=== PATIENT | female | born 1975 | race Two or more races ===

== ENCOUNTER 2024-04-16 07:36 | Inpatient (IN) | payer MEDICAID, SELFPAY ==
[2024-04-12 08:30] VITALS: BMI 39.2
--- NOTE | 2024-04-12 08:40 | EKG_ITS ---
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
[2024-04-12 09:42] LABS: Basophils % (Auto) 1 % (0-2.5); Eosinophils # (Auto) 0.1 Thou/mm3 (0.0-0.5); Eosinophils % (Auto) 2 % (0-10); Hematocrit 40.4 % (36.0-46.0); Immature Granulocytes % (Auto) 0 % (0-0); Immature Granulocytes Auto 0.01 Thou/mm3 (0.00-0.00); Lymphocytes # (Auto) 1.7 Thou/mm3 (1.0-4.8); Lymphocytes % (Auto) 27 % (10-50); Mean Corpuscular HGB Conc 34.7 g/dl (31.0-37.0); Mean Corpuscular Hemoglobin 30.3 pg (25.0-35.0); Mean Corpuscular Volume 87 fL (80-100); Monocytes # (Auto) 0.4 Thou/mm3 (0.0-0.8); Monocytes % (Auto) 6 % (0-12); Neutrophils % (Auto) 65 % (37-80); Nucleated Red Blood Cell % 0 /100 WBC (0); Platelet Count 205 Thou/mm3 (140-440); RDW Standard Deviation 38.2 fL (36.4-46.3); Red Blood Count 4.62 Miln/mm3 (4.00-5.20); White Blood Count 6.1 Thou/mm3 (3.6-11.0)
[2024-04-12 09:57] LABS: Partial Thromboplastin Time 27.1 Seconds (22.0-36.0)
[2024-04-12 09:59] LABS: Alanine Aminotransferase 12 U/L (10-49); Albumin, Serum 4.4 gm/dL (3.5-5.0); Albumin/Globulin Ratio 1.6 (1.2-2.2); Alkaline Phosphatase 66 U/L (46-116); Anion Gap 7 (7-16); Aspartate Amino Transferase 12 U/L (0-34); BUN/Creatinine Ratio 16 Ratio (12-20); Beta HCG,Quantitative < 1 mIU/mL (<5.0); Bilirubin,Total 0.6 mg/dL (0.3-1.2); Blood Urea Nitrogen 11 mg/dL (9-23); Calcium 9.3 mg/dL (8.3-10.6); Calcium (Corrected) 9.3 mg/dL (8.5-10.1); Carbon Dioxide 25.6 mMol/L (20.0-31.0); Chloride 107 mMol/L (98-107); Creatinine (Component) 0.7 mg/dL (0.6-1.3); Estimated Creatinine Clearance 100.8 mL/min (>60); Globulin 2.7 gm/dL (2.3-3.5); Glucose 125 mg/dL (74-106); Osmolality,Calculated 279 (275-295); Potassium 3.9 mMol/L (3.4-5.1); Sodium 140 mMol/L (136-145); Total Protein 7.1 gm/dL (5.7-8.2); eGFR > 60 See Note
--- NOTE | 2024-04-12 10:19 | ESHP_ITS ---
RE: MATTHIAS CARRION : 1975 DATE OF ADMISSION: 04/16/2024 HISTORY OF PRESENT ILLNESS: This is a 48-year-old 4, para 4 with abnormal uterine bleeding due to leiomyomatous uterus with frequent ER visits and blood transfusions for severe anemia. The patient has tried multiple conservative medical treatments including control pills and gonadotropin-releasing hormone receptor antagonists and this has failed to control the vaginal bleeding. She presents for hysterectomy. ALLERGIES: IBUPROFEN. MEDICATIONS: 1. Myfembree 40-1-0.5 mg p.o. daily. 2. Ferrous sulfate 325 mg one p.o. b.i.d. 3. Metformin 500 mg one p.o. b.i.d. PAST MEDICAL HISTORY: Prediabetes, severe anemia, blood transfusion, childbirth and gallstones. SOCIAL HISTORY: She denies any alcohol, drug use or smoking. FAMILY HISTORY: Diabetes. OBSTETRIC HISTORY: Four previous full-term normal vaginal deliveries. PAST SURGICAL HISTORY: Laparoscopic cholecystectomy. REVIEW OF SYSTEMS: She denies any chest pain, palpitations, cough, fever, shortness of breath, or lower extremity pain. PHYSICAL EXAMINATION: VITAL SIGNS: Blood pressure is 120/80, heart rate 88, respirations 18, temperature 98.2, and weight 194 pounds. HEENT: Oropharynx and sclerae are clear. LUNGS: Clear to auscultation bilaterally. HEART: Regular rate and rhythm. ABDOMEN: Nontender. Old trocar scars noted. EXTREMITIES: Nontender. SKIN: No gross rash or lesion. NEUROLOGIC: No focal deficits. ASSESSMENT: 1. Abnormal uterine bleeding. 2. Leiomyomatous uterus. 3. Severe anemia. 4. Dysmenorrhea. PLAN: Abdominal hysterectomy, possible bilateral salpingo-oophorectomy. Informed consent was obtained. The patient was made aware of the risks, complications, alternatives, and benefits of the proposed procedure and she agrees. She is aware of the risk of injury to bowel, bladder, ureters, adjacent organs, nerve injury to the legs and skin, pulmonary embolism, deep vein thrombosis, injury to the vessels of the abdominal wall, hematoma, abscess, wound infection, wound dehiscence, pelvic infection, reoperation, repair, injury to internal organs, anesthesia complications, the need for future surgery to remove ovaries or tubes, the need to take hormone therapy and its associated risks, uncontrollable loss of urine problems, prolapse of the vagina, and rarely . DT: 09:54:55 TT: 10:18:00 Ref: [id number] - TID: [id number]
[2024-04-16] VITALS (21 sets, daily range): BP systolic 101–136; BP diastolic 57–86; PULSE 57–82; RESP 12–20; TEMP 36.2–37; O2SAT 96–100; BMI 39.2
[2024-04-16] MEDS: RINGERS LACTATED 1000 ML 1,000 ML 30 ML IV ×2 (07:40→11:41)
--- NOTE | 2024-04-16 10:36 | SUR.PHASEI ---
1036 Patient arrived to recovery resting comfortably in bed, drowsy and able to arouse with verbal prompting, breathing unlabored, vital signs stable, denies pain, dressing intact to lower abdomen; dermabond, abd, medipore tape, no bleeding noted, to vaginal area; peripad, no bleeding noted, lung sounds clear upon auscultation, bilateral radial pulses present when palpated, urinary catheter 16F in place with leg secure; draining to gravity, report received from Edgar MAZARIEGOS and Dr. Masters
[2024-04-16] MEDS: fentaNYL CIT INJ 50 mCg/ML AMP 2ML 25 MCG IV ×4 (11:00→11:26)
[2024-04-16] MEDS: ACETAMINOPHEN IVPB 1,000 MG/100 ML VIAL 250 MG IV (11:09)
[2024-04-16] MEDS: Morphine Sulfate PF 1 MG/ML PCA VIAL 30 ML 30 MG IV (11:51)
--- NOTE | 2024-04-16 12:10 | SUR.PHASEI ---
pt resting in bed with eyes closed, responds to voice, breathing unlabored, VS stable, dressing to abdomen clean, dry, and intact, peripad in place-clean and dry, [address] and draining, report from Doretha Michele RN
--- NOTE | 2024-04-16 12:10 | SUR.PHASEI ---
1210 Report given to Doretha Rizzo RN
--- NOTE | 2024-04-16 12:15 | ESOP_ITS ---
RE: MATTHIAS CARRION : 1975 DATE OF OPERATION: 04/16/2024 PREOPERATIVE DIAGNOSES: 1. Abnormal uterine bleeding. 2. Leiomyomatous uterus. 3. Dysmenorrhea. 4. Severe anemia. POSTOPERATIVE DIAGNOSES: 1. Abnormal uterine bleeding. 2. Leiomyomatous uterus. 3. Dysmenorrhea. 4. Severe anemia. PROCEDURE PERFORMED: Subtotal abdominal hysterectomy and bilateral salpingectomy. SURGEON: Edgar Brasher DO DIRECTOR OF DEVELOPMENT: BHAVYA Guerra ANESTHESIA: General. ANESTHESIOLOGIST: Dr. Masters. ESTIMATED BLOOD LOSS: 75 mL. FINDINGS: A 14-week size leiomyomatous uterus with normal-appearing ovaries and fallopian tubes. No pelvic adhesions or evidence of endometriosis or malignancy. DESCRIPTION OF PROCEDURE: The risks, benefits, indications, and alternatives of the procedure were reviewed with the patient and informed consent was obtained. She was taken to the operating room with IV running. She received antibiotics prior to the procedure. MAJO hose and flowtron were in place. She was placed in the supine position on the operating room. She underwent induction of general anesthesia. A Butt catheter was placed. She was prepped and draped in the usual sterile fashion. A timeout was performed. A Pfannenstiel skin incision was made with the scalpel and carried through to the underlying layer of fascia with the Bovie. The fascia was nicked in the midline and the incision extended bilaterally with the Bovie. The inferior aspect of the fascial incision was grasped with Ari clamps and elevated. The underlying rectus muscle was dissected off with the Bovie. The rectus muscles were in the midline. The peritoneum identified between two Hernandez clamps and entered sharply with the Metzenbaum scissors. The incision was extended superiorly and inferiorly with good visualization of the bladder. The patient was placed in slight Trendelenburg. The O'Leland O'Treviño retractor was placed. The bowel packed away with three moist laparotomy pads. The O'Carl Treviño retractors were placed in the superior and inferior retraction. The round ligaments on both sides were then doubly clamped with Ari clamps, transected, and suture ligated with 0 Vicryl. The anterior leaf of the broad ligament was incised along the bladder reflection at the midline on both sides. The bladder was just gently dissected off the lower uterine segment with the Metzenbaum scissors. The EnSeal X1 Large Jaw device was then used to grasp the infundibulopelvic ligament on the left. It was clamped, fulgurated, and transected. Hemostasis was achieved. The broad ligament on the left was then clamped with EnSeal X1 Large Jaw fulgurated, transected, and hemostasis was achieved. The uterine artery on the left side was then clamped with the EnSeal X1 Large Jaw fulgurated, transected, and hemostasis was achieved. Attention was then turned to the right side where the right infundibulopelvic ligament was clamped with the EnSeal X1 Large Jaw device, fulgurated, transected, and hemostasis was achieved. The broad ligament was grasped with EnSeal X1 Large Jaw clamped, fulgurated, transected, and hemostasis was achieved. The uterine artery on the right was then grasped with the EnSeal X1 Large Jaw fulgurated, transected, and hemostasis was achieved. The uterus was amputated at the level of the endocervix and the specimen sent to Pathology. The cervical stump was closed with a series of [id number] stitches of 0 Vicryl. Hemostasis was achieved. The pelvis was copiously irrigated with warm normal saline solution. The left fallopian tube was grasped with a Flakito clamp and using the EnSeal X1 Large Jaw, the left salpingectomy was performed. The right fallopian tube was grasped with the Flakito clamp and using the EnSeal X1 Large Jaw, the right salpingectomy was performed. Hemostasis was achieved. The pelvis was copiously irrigated with warm normal saline and the O'Leland Treviño retractor was removed as well as the laparotomy pads and the peritoneum closed with 0 chromic catgut suture in running fashion. The muscle was closed with 0 chromic catgut suture running fashion. The fascia was closed with 0 Vicryl beginning at each angle and ending center in running fashion. Subcutaneous tissue was irrigated with normal saline solution and found to be hemostatic and closed with 2-0 chromic catgut suture in running fashion. The skin was closed with 4-0 Monocryl. Dermabond Prineo dressing was applied. A sterile pressure dressing was applied. She tolerated the procedure well. Counts were correct. I discussed with the patient's , the nature of her condition, intraoperative findings, expectations, and recovery. All questions were answered. DT: 11:09:00 TT: 12:13:00 Ref: [id number] - TID: [id number]
--- NOTE | 2024-04-16 12:46 | SUR.PHASEI ---
1246 Report received from Doretha Rizzo RN
--- NOTE | 2024-04-16 12:50 | SUR.PHASEI ---
1250 patients at bedside with patient
[2024-04-16] MEDS: ONDANSETRON INJ 2 MG/ML INJ 2 ML 4 MG IV (13:04)
--- NOTE | 2024-04-16 13:20 | SUR.PHASEI ---
1304 Patient complaining of nausea, Zofran 4mg via IV administered per anesthesia order 1320 Medication effective, patient denies nausea and resting comfortably in bed
--- NOTE | 2024-04-16 14:43 | SUR.PHASEI ---
1430 Report given to Sherrell MAZARIEGOS, patient meets discharge criteria from recovery, resting comfortably in bed, breathing unlabored, vital signs stable, denies pain-pain controlled with [employer], dressing intact; no bleeding noted, eating ice chips; denies nausea, urinary catheter in place; draining to gravity-300ml empties prior to discharge from recovery, patients at bedside 1443 Patient transported via bed to room 350 without incident.
[2024-04-16 16:28] LABS: Basophils % (Auto) 0 % (0-2.5); Eosinophils % (Auto) 0 % (0-10); Hematocrit 37.1 % (36.0-46.0); Hemoglobin 13.1 g/dL (12.0-16.0); Immature Granulocytes % (Auto) 0 % (0-0); Immature Granulocytes Auto 0.04 Thou/mm3 (0.00-0.00); Lymphocytes # (Auto) 0.8 Thou/mm3 (1.0-4.8); Lymphocytes % (Auto) 6 % (10-50); Mean Corpuscular HGB Conc 35.3 g/dl (31.0-37.0); Mean Corpuscular Hemoglobin 30.8 pg (25.0-35.0); Mean Corpuscular Volume 87 fL (80-100); Monocytes # (Auto) 0.4 Thou/mm3 (0.0-0.8); Monocytes % (Auto) 3 % (0-12); Neutrophils # (Auto) 11.8 Thou/mm3 (1.8-7.7); Neutrophils % (Auto) 90 % (37-80); Nucleated Red Blood Cell % 0 /100 WBC (0); Platelet Count 202 Thou/mm3 (140-440); RDW Standard Deviation 38.2 fL (36.4-46.3); Red Blood Count 4.26 Miln/mm3 (4.00-5.20); White Blood Count 13.1 Thou/mm3 (3.6-11.0)
[2024-04-16] MEDS: metFORMIN 500 MG TABLET PO (17:44)
--- NOTE | 2024-04-16 20:22 | PC.NURSE ---
Verified code status with Dr Brasher. Verified it with second Nurse July MAZARIEGOS.
[2024-04-17] VITALS (10 sets, daily range): BP systolic 116–138; BP diastolic 64–73; PULSE 71–90; RESP 14–20; TEMP 36.1–36.5; O2SAT 93–95
[2024-04-17] MEDS: Lisinopril 2.5 MG TABLET 5 MG PO (08:03)
[2024-04-17] MEDS: metFORMIN 500 MG TABLET PO ×2 (08:03→17:48)
--- NOTE | 2024-04-17 20:04 | ESPR_ITS ---
RE: MATTHIAS CARRION : 1975 DATE OF SERVICE: 04/17/2024 SUBJECTIVE: Postop day #1. The patient denies any problem or complaints. OBJECTIVE: Vital signs: Stable. She is afebrile. Lungs: Clear to auscultation. Heart: Regular rate and rhythm. Abdomen: Nondistended. Dressing dry and intact. Extremities: Nontender. Hemoglobin presurgery is 14.0. Postsurgery is 13.1. ASSESSMENT: Postop day #1, status post subtotal abdominal hysterectomy, bilateral salpingectomy PLAN: Remove dressing, discontinue IV, encourage ambulation, transition to hydrocodone. Possible discharge home tomorrow. I discussed with the patient the intraoperative findings, expectation for recovery. All questions answered. DT: 19:11:40 TT: 20:02:00 Ref: [id number] - TID: [id number]
[2024-04-18] VITALS: BP 127/72; PULSE 96; RESP 17; TEMP 36.1; O2SAT 95
[2024-04-18 00:30] VITALS: PULSE 87; RESP 20; O2SAT 95
[2024-04-18 04:00] VITALS: BP 119/67; PULSE 88; RESP 17; TEMP 36.1; O2SAT 95
--- NOTE | 2024-04-18 04:30 | ESPR_ITS ---
RE: MATTHIAS CARRION : 1975 DATE OF SERVICE: 04/18/2024 S: Postop day #2, the patient denies any prior problems. She is voiding, ambulating, tolerating a regular diet, passing flatus. She denies any excessive vaginal bleeding. She denies any dizziness or lightheadedness. She denies any chest pain, palpitations, shortness of breath, or lower extremity pain. O: Vitals Signs: Stable. She is afebrile. Lungs: Clear to auscultation bilaterally. Heart: Regular rate and rhythm. Abdomen: Incision clear and intact. Extremities: Nontender. A: Postoperative day #2, status post subtotal abdominal hysterectomy and bilateral salpingectomy. P: Discharge home. Discharge instructions given. Follow up in the office in one week. DT: 03:54:11 TT: 04:28:00 Ref: [id number] - TID: [id number]
--- NOTE | 2024-04-18 05:05 | ESDS_ITS ---
RE: MARY JANENERYMATTHIAS HEIN : 1975 DATE OF ADMISSION: 04/16/2024 DATE OF DISCHARGE: 04/18/2024 HOSPITAL COURSE: bis a 48-year-old with symptomatic uterine fibroids who underwent a subtotal abdominal hysterectomy and bilateral salpingectomy under general anesthesia with 75 mL of blood loss without complication on 04/16/2024. Her postoperative course was unremarkable. She was discharged home on postoperative day #2. DISCHARGE DIAGNOSES: 1. Abnormal uterine bleeding. 2. Leiomyomatous uterus. 3. Dysmenorrhea. 4. Severe anemia. 5. Subtotal abdominal hysterectomy. 6. Bilateral salpingectomy. DT: 03:55:24 TT: 05:04:00 Ref: [id number] - TID: [id number]
[2024-04-18 07:30] VITALS: PULSE 88; RESP 18; O2SAT 96
[2024-04-18 08:00] VITALS: BP 121/77; PULSE 87; RESP 17; TEMP 36.1; O2SAT 96
[2024-04-18 08:13] VITALS: BP 127/71; PULSE 88
[2024-04-18] MEDS: Lisinopril 2.5 MG TABLET 5 MG PO (08:13)
[2024-04-18] MEDS: metFORMIN 500 MG TABLET PO (08:14)
--- NOTE | 2024-04-18 08:58 | PC.SS ---
Late note 04-18-24: SS met with patient regarding her d/c plan.? Pt is alert/oriented.? Pt was admitted for [facility] [id number].? Pt confirmed demographic and contact information is correct on facesheet.? Pt resides with and kids.? Pt ambulates independently without assistance or DME.? Pt is ok with all ADLs.? Pt named her , Abraham burr medical decision maker if she is unable.? Patient?s choice is to return home upon d/c.? Pt does not have an advance directive, SS offered, and pt declined.? Pt states she takes oral medication for her diabetes. D/C plan:? Return home Next of Kin:? Abraham Burr, , phone# [phone] PCP:? Dr. Leslie Campbell from [facility] in [place] Address:? Correct on facesheet
== END 2024-04-18 08:15 | disposition home or self-care (01) | DRG 519 ==
LOC: S2W1 10:26 → S3NX 15:33
PROVIDERS: Admitting Provider Specialist; PCP Physician Assistant; Visit Provider Specialist
PROC: 0UT90ZZ Resection of Uterus, Open Approach (ICD-10-PCS; principal; 2024-04-16 08:45)
DX: D25.9 Leiomyoma of uterus, unspecified (principal); D64.9 Anemia, unspecified; N94.6 Dysmenorrhea, unspecified; Z90.49 Acquired absence of other specified parts of digestive tract
CPT/HCPCS: 36415; 80053; 84702; 85025; 85610; 85730; 86850; 86870; 86900; 86901; 93005; 94664; A4217; A4649; J0131; J0690; J2250; J2270; J2405; J2704; J2765; J3010; J3490; J7120; A9270